=== PATIENT | male | born 1990 | race Caucasian/White ===

== ENCOUNTER 2017-12-02 17:36 | Emergency (ER) | payer OTHER ==
[~2017-12-02] VITALS: Ht 172.7 cm; Wt 88.6 kg
[~2017-12-02 17:36] MED LIST: FETZIMA80 MG PO; NAPROSYN500 MG PO; NORCO 5/3251 TABLET PO
[2017-12-02 18:17] LABS: HEMATOCRIT 47.4 % (38.0-50.0); HEMOGLOBIN 16.3 G/DL (12.5-16.6); MCH 30.1 PG (29.0-34.0); MCHC 34.4 G/DL (30.0-36.0); MCV 87.6 FL (86-99); PLATELET COUNT 269 K/uL (156-360); RBC DIS.WIDTH-CV 11.9 % (11.8-14.6); RBC DIS.WIDTH-SD 38.1 % (39-53); RED BLOOD COUNT 5.41 M/uL (4.00-5.50); WHITE BLOOD COUNT 7.1 K/uL (4.1-10.2)
[2017-12-02 18:27] LABS: ALBUMIN 4.7 g/dL (3.2-4.8)
[2017-12-02 18:28] LABS: CHLORIDE 101 mEq/L (99-109); POTASSIUM 4.3 mEq/L (3.7-5.4); SODIUM 142 mEq/L (136-147)
[2017-12-02 18:29] LABS: APPEARANCE CLOUDY ((CLEAR)); BILIRUBIN NEGATIVE; BLOOD NEGATIVE; COLOR AMBER ((YELLOW)); GLUCOSE (STRIP) NEGATIVE; KETONES NEGATIVE; LEUKOCYTES NEGATIVE; NITRITE NEGATIVE; PROTEIN (STRIP) NEGATIVE; SPECIFIC GRAVITY 1.009 (1.000-1.030); UROBILINOGEN 0.2 MG/DL (0.2-1.0)
[2017-12-02 18:30] LABS: GLUCOSE 84 mg/dL (70-99)
[2017-12-02 18:32] LABS: BACTERIA NONE SEEN /HPF; EPITHELIAL CELLS RARE /HPF; MUCUS NONE SEEN /LPF; RED BLOOD CELLS 0-5 /HPF (0-5); UCUL ADDED? NO; WHITE BLOOD CELLS NONE SEEN /HPF (0-5)
[2017-12-02 18:33] LABS: ALKALINE PHOSPHATASE 61 IU/L (3-129)
[2017-12-02 18:34] LABS: CREATININE 1.1 mg/dL (0.6-1.3); GFR ESTIMATE (CALCULATED) > 59 mL/min/ (58.99-99999)
[2017-12-02 18:35] LABS: AST (GOT) 72 IU/L (2-34); UREA NITROGEN (BUN) 10 mg/dL (9-23)
[2017-12-02 18:37] LABS: ALT (GPT) 192 IU/L (3-49)
[2017-12-02 20:38] LABS: LIPASE 26 U/L (1.0-51.0)
[2017-12-02] MEDS ORDERED: MOTRIN600 MG PO (21:53)
[2017-12-02 22:12] VITALS: BP 160/88
== END 2017-12-02 22:13 | disposition home or self-care (01) ==
LOC: EME 17:36
DX: K63.89 Other specified diseases of intestine (principal); K59.00 Constipation, unspecified; F32.9 Major depressive disorder, single episode, unspecified; F90.9 Attention-deficit hyperactivity disorder, unspecified type
CPT/HCPCS: 74176; 80053; 81003; 83690; 85027; 99281; 99284